=== PATIENT | male | born 1955 | race Caucasian/White ===

== ENCOUNTER 2024-05-19 10:09 | Emergency (ER) | payer MEDICARE, SELFPAY ==
[2024-05-19] VITALS (12 sets, daily range): BP systolic 113–121; BP diastolic 62–70; PULSE 50–60; RESP 18; TEMP 36.5; O2SAT 94–99; BMI 29.0
--- NOTE | 2024-05-19 10:47 | ED_ITS ---
HPI - SOB/Dyspnea General Time Seen by Provider: 10:47 Date Seen: 05/19/24 Chief Complaint: Shortness of Breath/Dyspnea Stated Complaint: Short of breath Time Seen by Provider: 05/19/24 10:46 Source: patient and RN notes reviewed Mode of arrival: ambulatory Limitations: no limitations History of Present Illness HPI Narrative: This 68-year-old male is coming in with shortness of breath that is worse today. He had to have his significant other open the door this morning so he could get some fresh air, felt like he could breathe. They did try to go garage saline after that, just felt like he was short of breath and could not breathe. He has remote history of smoking but has never been diagnosed with COPD/emphysema but he states he does think about this. He has an appointment with his doctor this coming Tuesday. He does have underlying heart issues, has a history of congestive heart failure, has diabetes, has had heart attacks before and does know that 1 of his stents he is maybe blocked. He had a little chest discomfort this morning. He has maybe been coughing some this past week but no fevers. He notes his breathing really has not been the best over the last few months. Does not note any edema. He states his appetite is good. He notes he has been more lightheaded. He is cutting 1 of his medications in half as it was causing his blood pressure to go too low. He does his Cardiology cares either through [place] or [facility]. elicited complaint: shortness of breath Related Data Home Medications ?Medication ?Instructions ?Recorded ?Confirmed atorvastatin 80 mg tablet 80 mg PO DAILY 05/19/24 05/19/24 clopidogrel 75 mg tablet 75 mg PO QAM 05/19/24 05/19/24 empagliflozin 25 mg tablet 25 mg PO DAILY 05/19/24 05/19/24 (Jardiance) fenofibrate nanocrystallized 145 145 mg PO DAILY 05/19/24 05/19/24 mg tablet glipizide 10 mg tablet 10 mg PO BID 05/19/24 05/19/24 isosorbide mononitrate 30 mg 30 mg PO DAILY 05/19/24 05/19/24 tablet,extended release 24 hr losartan 25 mg tablet 25 mg PO DAILY 05/19/24 05/19/24 metformin 1,000 mg tablet 1,000 mg PO BID 05/19/24 05/19/24 metoprolol succinate 50 mg 50 mg PO DAILY 05/19/24 05/19/24 tablet,extended release 24 hr tamsulosin 0.4 mg capsule 0.4 mg PO DAILY 05/19/24 05/19/24 Allergies Allergy/AdvReac Type Severity Reaction Status Date / Time No Known Drug Allergies Allergy Verified 05/19/24 10:20 Review of Systems Status of ROS: Reports: 6 or more systems reviewed and unremarkable except as noted in History and below PFSH PFSH Social History Smoking Status: Former smoker How often do you have a drink containing alcohol: never AUDIT-C Alcohol total score: 0 Exam Const: Vital Signs, click to edit/add: Vital Signs - 24 hr 05/19/24 10:16 05/19/24 11:00 05/19/24 11:01 Temperature 97.7 F Pulse Rate Pulse Rate [Pulse Oximeter] 60 Pulse Rate [Right Pulse Oximeter] 54 L Pulse Rate [orthos tatic lying Pulse Oximeter] 51 L Pulse Rate [orthos tatic sitting Puls e Oximeter] 54 L Respiratory Rate 18 Blood Pressure [Ri ght Upper Arm] 120/67 Blood Pressure [or thostatic lying Ri ght Arm] 121/70 Blood Pressure [or thostatic sitting Right Arm] 113/66 Blood Pressure [or thostatic standing Right Arm] 115/62 Pulse Oximetry 99 [facility] 05/19/24 11:56 05/19/24 12:00 05/19/24 12:15 Temperature Pulse Rate 55 L 57 L 54 L Pulse Rate [Pulse Oximeter] Pulse Rate [Right Pulse Oximeter] Pulse Rate [orthos tatic lying Pulse Oximeter] Pulse Rate [orthos tatic sitting Puls e Oximeter] Respiratory Rate Blood Pressure [Ri ght Upper Arm] Blood Pressure [or thostatic lying Ri ght Arm] Blood Pressure [or thostatic sitting Right Arm] Blood Pressure [or thostatic standing Right Arm] Pulse Oximetry 97 97 94 Oxygen Delivery Pa thod 05/19/24 12:30 Temperature Pulse Rate 60 Pulse Rate [Pulse Oximeter] Pulse Rate [Right Pulse Oximeter] Pulse Rate [orthos tatic lying Pulse Oximeter] Pulse Rate [orthos tatic sitting Puls e Oximeter] Respiratory Rate Blood Pressure [Ri ght Upper Arm] Blood Pressure [or thostatic lying Ri ght Arm] Blood Pressure [or thostatic sitting Right Arm] Blood Pressure [or thostatic standing Right Arm] Pulse Oximetry 98 Oxygen Delivery Me thod This 68-year-old male is alert, interactive, no apparent distress. He is sitting in a chair in exam room want. His speech is normal, able speak in complete sentences. Sclera clear, face atraumatic. Neck supple, do not note any jugular venous distension, no masses, no thyromegaly masses or nodules. Lungs are clear, good air entry, no wheezing or crackles. CV regular rate and rhythm, no murmur heard normal S1-S2, no S3-S4. Abdomen is soft, nontender. He has absolutely no lower extremity edema. Skin visualized without any rash. Documenting provider has reviewed patient's vital signs: yes Course Course ED Course: Patient will be monitored on pulse oximetry while here. Will get an EKG, portable chest x-ray, full complement of labs. Will consider infectious etiology, doubt COPD as he has no wheezing, oxygenating well. Could be ischemic disease, congestive heart failure. Will consider CT imaging if necessary. Cu rrently, patient is hemodynamically stable, no obvious evidence of anything to intervene on, is oxygenating excellent. Reevaluation(s) Time of Reevaluation #1: 13:49 Reevaluation #1: Did review with patient that his workup is remarkably normal. His labs are very reassuring, no evidence of any elevated heart markers such as troponin or proBNP. His D-dimer is normal. He has been oxygenating in the upper 90s here, think that would make him less likely to have any significant COPD. There certainly could be an environmental component as he was concerned about this. Would recommend staying in air-conditioned places as that would help in this situation. Vital Signs Vital signs: Initial Vital Signs Temperature 97.7 F 05/19/24 10:16 Temperature Source Temporal Artery Scan 05/19/24 10:16 Pulse Rate 54 L 05/19/24 10:16 Respiratory Rate 18 05/19/24 10:16 Blood Pressure 120/67 05/19/24 10:16 Blood Pressure Mean 84 05/19/24 10:16 Blood Pressure Position Sitting 05/19/24 10:16 Pulse Oximetry 99 05/19/24 10:16 Oxygen Delivery Method Room Air 05/19/24 10:16 Vital Signs Temperature 97.7 F 05/19/24 10:16 Pulse Rate 54 L 05/19/24 10:16 Respiratory Rate 18 05/19/24 10:16 Blood Pressure 120/67 05/19/24 10:16 Pulse Oximetry 99 05/19/24 10:16 Oxygen Delivery Method Room Air 05/19/24 10:16 Temperature 97.7 F 05/19/24 10:16 Pulse Rate 60 05/19/24 12:30 Respiratory Rate 18 05/19/24 10:16 Blood Pressure 121/70 05/19/24 11:00 Pulse Oximetry 98 05/19/24 12:30 Oxygen Delivery Method Room Air 05/19/24 10:16 MDM - SOB/Dyspnea Lab Data Attestation: I reviewed the patient's lab results. Labs: Lab Results 05/19/24 Range/Units 11:22 WBC 7.30 (4.50-11.00) K/uL RBC 5.82 (4.30-5.90) m/uL Hgb 15.7 (13.5-17.5) gm/dL Hct 49.5 (37.0-53.0) % MCV 85 (80-100) fL MCH 27 (26-34) pg MCHC 32 (32-36) gm/dL RDW Coeff of Vanessa 13.8 (11.5-15.5) % Plt Count 186 (140-440) K/uL Neut % (Auto) 67.6 (42.0-72.0) % Lymph % (Auto) 23.4 (20-44) % [place] % (Auto) 7.5 (0.0-11.0) % Eos % (Auto) 0.8 (0.0-7.0) % Baso % (Auto) 0.4 (0.0-3.0) % Neut # (Auto) 4.93 (1.7-7.0) K/uL Lymph # (Auto) 1.71 (0.90-2.90) K/uL [place] # (Auto) 0.50 (0.00-0.90) K/UL Eos # (Auto) 0.06 (0.00-0.50) K/uL Baso # (Auto) 0.03 (0.00-0.30) K/uL Abs Immat Gran (auto) 0.02 (0.00-0.30) K/uL Imm/Tot Granulo (auto) 0.3 % D-Dimer Quant (PE/DVT) < 0.27 (0.00-0.50) ug/ml VBG pH 7.339 (7.32-7.43) VBG pCO2 46 (40-50) mmHG VBG pO2 30.3 (25-47) mmHG VBG HCO3 25 (21-28) mmol/L Sodium 136 (135-149) mmol/L Potassium 4.6 (3.6-5.1) mmol/L Chloride 102 (96-114) mmol/L Carbon Dioxide 22 (20-32) mmol/L Anion Gap 12 (7-15) mEq/L BUN 27 (7-30) mg/dL Creatinine 0.9 (0.5-1.5) mg/dL Estimated Creat Clear 82.12 Estimated GFR 94 ml/min Glucose 138 H (60-115) mg/dL Calcium 9.8 (8.4-10.6) mg/dL Magnesium 2.1 (1.5-2.6) mg/dL Total Bilirubin 0.6 (0.1-1.5) mg/dL AST 32 (12-35) U/L ALT 30 (4-50) U/L Alkaline Phosphatase 36 L (40-150) U/L Troponin I < 0.01 L (0.01-0.04) ng/mL C-Reactive Protein < 0.5 L (0.5-1.0) mg/dL NT-Pro-B Natriuret Pep 74 pg/mL Total Protein 7.6 (6.0-8.3) g/dL Albumin 5.0 (3.3-5.0) g/dL Imaging Data Chest x-ray: Attestation: I have reviewed the pertinent imaging results. My impression: Chest x-ray appears clear to me on my preliminary review. Radiologist's impression: Patient: SENG SANCHEZ Facility:?[facility] Patient ID:?[id number] Site Patient ID:?[id number]. Site :?[id number] Study:?XRay-Chest -05/19/2024 11:19:34 AM Ordering Physician:Ruby Felix Final Report: INDICATION: Shortness of breath. TECHNIQUE: Chest 1 portable view. COMPARISON: 11/29/2020. FINDINGS: No pneumothorax or pleural effusion. Lungs are clear. Cardiac and mediastinal contours are within normal limits. Upper abdomen and osseous structures as imaged show no acute abnormality. IMPRESSION: No evidence of acute cardiopulmonary disease. Dictated by Migue Miller MD @ 05/19/2024 11:58:14 AM (Electronic Signature) ECG Data Attestation: I personally reviewed and interpreted this ECG as follows: (Sinus bradycardia, 54 beats per minute. Poor R-wave progression anterior precordial leads without any acute ST segment changes.) ECG interpretation date: 05/19/24 ECG interpretation time: 11:42 Prior ECG tracings: not available for review Discharge Plan Discharge Clinical Impression: Shortness of breath Patient Disposition: Home, Self-Care Condition: Stable Instructions: Shortness of Breath (ED) Additional Instructions: Need to follow-up with your primary care provider as planned. Would talk to them about seeing if pulmonary function test or at the spirometry could possibly be done in further evaluation of respiratory component of your symptoms. There is no evidence of any acute heart attack, no congestive heart failure, no infiltrate on your chest x-ray. Labs are extremely reassuring at this time. If you feel you are worsening, have further concerns or develops new or concerning symptoms, please seek re-evaluation in the interim. Activity Level: Activity as Tolerated Prescriptions: No Action atorvastatin 80 mg tablet 80 mg PO DAILY metoprolol succinate 50 mg tablet extended release 24 hr 50 mg PO DAILY glipizide 10 mg tablet 10 mg PO BID isosorbide mononitrate 30 mg tablet extended release 24 hr 30 mg PO DAILY clopidogrel 75 mg tablet 75 mg PO QAM tamsulosin 0.4 mg capsule 0.4 mg PO DAILY metformin 1,000 mg tablet 1,000 mg PO BID losartan 25 mg tablet 25 mg PO DAILY fenofibrate nanocrystallized 145 mg tablet 145 mg PO DAILY Jardiance 25 mg tablet 25 mg PO DAILY Follow Up/Referrals: Serenity León DO [Primary Care Provider] - Stand Alone Forms: MyHealth Info Instructions
--- NOTE | 2024-05-19 11:01 | CRLHL7_ITS ---
For Patients: As a result of the Century Cures Act, medical imaging exams and procedure reports are released immediately into your electronic medical record. You may view this report before your referring provider. If you have questions, please contact your health care provider. INDICATION: Shortness of breath. TECHNIQUE: Chest 1 portable view. COMPARISON: 11/29/2020. FINDINGS: No pneumothorax or pleural effusion. Lungs are clear. Cardiac and mediastinal contours are within normal limits. Upper abdomen and osseous structures as imaged show no acute abnormality. IMPRESSION: No evidence of acute cardiopulmonary disease. Dictated by Migue Miller MD @ 05/19/2024 11:58:14 AM (Electronically Signed)
[2024-05-19 11:32] LABS: Basophils Absolute Auto 0.03 K/uL (0.00-0.30); Basophils Percent Auto 0.4 % (0.0-3.0); Eosinophils Absolute Auto 0.06 K/uL (0.00-0.50); Eosinophils Percent Auto 0.8 % (0.0-7.0); Hematocrit 49.5 % (37.0-53.0); Hemoglobin* 15.7 gm/dL (13.5-17.5); Immature Granulocytes Abs Auto 0.02 K/uL (0.00-0.30); Immature Granulocytes Pct Auto 0.3 %; Lymphocytes Absolute Auto 1.71 K/uL (0.90-2.90); Lymphocytes Percent Auto 23.4 % (20-44); Mean Corpuscular HGB Conc 32 gm/dL (32-36); Mean Corpuscular Hemoglobin 27 pg (26-34); Mean Corpuscular Volume 85 fL (80-100); Monocytes Percent Auto 7.5 % (0.0-11.0); Neutrophils Absolute Auto 4.93 K/uL (1.7-7.0); Neutrophils Percent Auto 67.6 % (42.0-72.0); Platelet Count* 186 K/uL (140-440); RDW Coefficient of Variation % 13.8 % (11.5-15.5); Red Blood Count 5.82 m/uL (4.30-5.90)
[2024-05-19 11:34] LABS: HCO3 VBG 25 mmol/L (21-28); PCO2 VBG 46 mmHG (40-50); PO2 VBG 30.3 mmHG (25-47); pH VBG 7.339 (7.32-7.43)
[2024-05-19 11:36] LABS: Slide Review Reflex No
[2024-05-19 11:50] LABS: Chloride* 102 mmol/L (96-114)
[2024-05-19 11:51] LABS: Potassium* 4.6 mmol/L (3.6-5.1); Sodium* 136 mmol/L (135-149)
[2024-05-19 11:54] LABS: Alanine Aminotransferase* 30 U/L (4-50); Alkaline Phosphatase* 36 U/L (40-150); Anion Gap 12 mEq/L (7-15); Aspartate Amino Transferase* 32 U/L (12-35); Bilirubin Total* 0.6 mg/dL (0.1-1.5); Blood Urea Nitrogen* 27 mg/dL (7-30); Carbon Dioxide* 22 mmol/L (20-32); Creatinine* 0.9 mg/dL (0.5-1.5); Est. Creatinine Clearance* 82.12; Estimated Glomerular Filt Rate 94 ml/min; Total Protein* 7.6 g/dL (6.0-8.3)
[2024-05-19 11:55] LABS: Calcium* 9.8 mg/dL (8.4-10.6); Glucose* 138 mg/dL (60-115); Magnesium* 2.1 mg/dL (1.5-2.6)
[2024-05-19 12:09] LABS: C Reactive Protein* < 0.5 mg/dL (0.5-1.0); NT Pro B Type NatriureticPept* 74 pg/mL; Troponin I* < 0.01 ng/mL (0.01-0.04)
[2024-05-19 12:10] LABS: D Dimer Quantitative* < 0.27 ug/ml (0.00-0.50)
== END 2024-05-19 14:07 | disposition home or self-care (01) ==
PROVIDERS: Emergency Provider Family Medicine; PCP Family Medicine
DX: R06.02 Shortness of breath (principal)
CPT/HCPCS: 36415; 71045; 80053; 82803; 83735; 83880; 84484; 85025; 85379; 86140; 93005; 94761; 99284; 99285